=== PATIENT | female | born 1965 | race American Indian/Alaskan Native ===

== ENCOUNTER 2019-09-06 10:43 | Outpatient (CLI) | payer OTHER ==
--- NOTE | 2019-09-06 12:30 | XRay Report ---
Lumbar spine-3 views Bilateral hips-3 total views INDICATION: MULTIPLE SCLEROSIS. COMPARISON: None. IMPRESSION: Normal alignment. No significant discogenic DJD or facet arthropathy. 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 No acute abnormality identified. Signer Name: Pee Wall MD Signed: 09/06/2019 12:26 PM Workstation Name: [id number]
== END 2019-09-06 10:44 | disposition home or self-care (01) ==
LOC: XRAY 10:43
PROVIDERS: ATTEND Internal Medicine
DX: G35 Multiple sclerosis (principal)
CPT/HCPCS: 72100; 73521